=== PATIENT | female | born 1990 | race Caucasian/White ===

== ENCOUNTER 2018-12-07 18:36 | Emergency (ER) | payer BC ==
[2018-12-07] MEDS ORDERED: Ketorolac 30 MG/ML SDV IVPUSH ONE (19:15)
[2018-12-07] MEDS ORDERED: Ondansetron 4 MG/2 ML SDV IVPUSH ONE (19:15)
[2018-12-07] MEDS ORDERED: Sodium Chloride 0.9% 1,000 ML IV ONE (19:15)
--- NOTE | 2018-12-07 19:17 | EDM.PDOC ---
ED HPI GENERAL MEDICAL PROBLEM - General Chief Complaint: General Stated Complaint: SWEATING, HEADACHE, BODY PAINS Time Seen by Provider: 12/07/18 19:09 - History of Present Illness INITIAL COMMENTS - FREE TEXT/NARRATIVE: HISTORY AND PHYSICAL: History of present illness: Patient is a 28-year-old white female presents with a concern of headache nausea vomiting diarrhea generalized body aches over the last 24-48 hours she denies vaginal discharge or irregular bleeding or urinary tract infection signs or symptoms. There's been no reported fever and on arrival has no fever. Review of systems: As per history of present illness and below otherwise all systems reviewed and negative. Past medical history: As per history of present illness and as reviewed below otherwise noncontributory. Surgical history: As per history of present illness and as reviewed below otherwise noncontributory. Social history: No reported history of drug or alcohol abuse. Family history: As per history of present illness and as reviewed below otherwise noncontributory. Physical exam: HEENT: Atraumatic, normocephalic, pupils reactive, negative for conjunctival pallor or scleral icterus, mucous membranes moist, throat clear, neck supple, nontender, trachea midline. Lungs: Clear to auscultation, breath sounds equal bilaterally, chest nontender. Heart: S1S2, regular, negative for clicks, rubs, or JVD. Abdomen: Soft, nondistended, nontender. Negative for masses or hepatosplenomegaly. Negative for costovertebral tenderness. Pelvis: Stable nontender. Genitourinary: Deferred. Rectal: Deferred. Extremities: Atraumatic, negative for cords or calf pain. Neurovascular unremarkable. Neuro: Awake, alert, oriented. Cranial nerves II through XII unremarkable. Cerebellum unremarkable. Motor and sensory unremarkable throughout. Exam nonfocal. Diagnostics: CBC CMP UA hCG stool for C&S O&P C. difficile if obtainable CT brain chest x-ray Therapeutics: Saline 1 L bolus Toradol 30 mg IV Zofran 4 mg IV Impression: #1 medical screening exam #2 viral syndrome Definitive disposition and diagnosis as appropriate pending reevaluation and review of above. Headache Pain Score (Numeric/FACES): 8 - Related Data Allergies Allergy/AdvReac Type Severity Reaction Status Date / Time No Known Allergies Allergy Verified 12/07/18 18:56 Home Meds: Home Meds . [No Known Home Meds] 12/07/18 [History] Past Medical History HEENT History: Reports: Other (See Below) Other HEENT History: wears glasses/contacts Gastrointestinal History: Reports: Cholelithiasis HYPO SPLASHER History: Reports: Polycystic Ovaries, Other HYPO SPLASHER History: vaginal deliver 4 months ago Neurological History: Reports: Concussion Psychiatric History: Reports: Anxiety, Depression - Past Surgical History Head Surgeries/Procedures: Reports: None HEENT Surgical History: Reports: Adenoidectomy, Myringotomy w Tube(s), Oral Surgery, Tonsillectomy GI Surgical History: Reports: Cholecystectomy Social & Family History - Family History Family Medical History: Noncontributory Cardiac: Reports: Heart Valve Replacement, Hypertension - Tobacco Use Smoking Status *Q: Never Smoker Second Hand Smoke Exposure: No - Caffeine Use Caffeine Use: Reports: Coffee, Soda - Recreational Drug Use Recreational Drug Use: No ED ROS GENERAL - Review of Systems Review Of Systems: ROS reveals no pertinent complaints other than HPI. ED EXAM, GENERAL - Physical Exam Exam: See Below (See dictation) Course - Vital Signs Last Recorded V/S: Last Vital Signs Temp 37.4 C 12/07/18 18:52 Pulse 95 12/07/18 18:52 Resp 18 12/07/18 18:52 BP 135/80 12/07/18 18:52 Pulse Ox 100 12/07/18 18:52 - Orders/Labs/Meds Orders: Active Orders 24 hr Category Date Time Status CDIFF TOX A+B [OP] Stat Lab 12/07/18 19:17 Ordered CULTURE STOOL + CAMPY+SHIGATOX [RM] Stat Lab 12/07/18 19:15 Ordered Isolation [COMM] Stat Oth 12/07/18 19:18 Ordered Labs: Laboratory Tests 12/07/18 12/07/18 12/07/18 Range/Units 19:21 19:21 19:21 WBC 6.57 (4.0-11.0) K/uL RBC 4.66 (4.30-5.90) M/uL Hgb 13.9 (12.0-16.0) g/dL Hct 40.6 (36.0-46.0) % MCV 87.1 (80.0-98.0) fL MCH 29.8 (27.0-32.0) pg MCHC 34.2 (31.0-37.0) g/dL RDW Std Deviation 42.1 (28.0-62.0) fl RDW Coeff of Porsche 13 (11.0-15.0) % Plt Count 309 (150-400) K/uL MPV 10.30 (7.40-12.00) fL Neut % (Auto) 62.8 (48.0-80.0) % Lymph % (Auto) 24.2 (16.0-40.0) % [place] % (Auto) 12.0 (0.0-15.0) % Eos % (Auto) 0.8 (0.0-7.0) % Baso % (Auto) 0.2 (0.0-1.5) % Neut # (Auto) 4.1 (1.4-5.7) K/uL Lymph # (Auto) 1.6 (0.6-2.4) K/uL [place] # (Auto) 0.8 (0.0-0.8) K/uL Eos # (Auto) 0.1 (0.0-0.7) K/uL Baso # (Auto) 0.0 (0.0-0.1) K/uL Nucleated RBC % 0.0 /100WBC Nucleated RBCs # 0 K/uL Sodium 142 (136-145) mmol/L Potassium 3.5 (3.5-5.1) mmol/L Chloride 105 (98-107) mmol/L Carbon Dioxide 27.9 (21.0-32.0) mmol/L BUN 11 (7.0-18.0) mg/dL Creatinine 0.8 (0.6-1.0) mg/dL Est Cr Clr Drug Dosing 97.13 mL/min Estimated GFR (MDRD) > 60.0 ml/min Glucose 102 (74-106) mg/dL Calcium 9.2 (8.5-10.1) mg/dL Total Bilirubin 0.3 (0.2-1.0) mg/dL AST 17 (15-37) IU/L ALT 38 (14-63) IU/L Alkaline Phosphatase 79 (46-116) U/L Total Protein 7.9 (6.4-8.2) g/dL Albumin 4.0 (3.4-5.0) g/dL Globulin 3.9 (2.6-4.0) g/dL Albumin/Globulin Ratio 1.0 (0.9-1.6) Lipase 80 (73-393) U/L HCG, Qual NEGATIVE (NEG) Urine Color Urine Appearance Urine pH (5.0-8.0) Ur Specific [place] (1.001-1.035) Urine Protein (NEGATIVE) mg/dL Urine Glucose (UA) (NEGATIVE) mg/dL Urine Ketones (NEGATIVE) mg/dL Urine Occult Blood (NEGATIVE) Urine Nitrite (NEGATIVE) Urine Bilirubin (NEGATIVE) Urine Urobilinogen (<2.0) EU/dL Ur Leukocyte Esterase (NEGATIVE) 12/07/18 Range/Units 20:21 WBC (4.0-11.0) K/uL RBC (4.30-5.90) M/uL Hgb (12.0-16.0) g/dL Hct (36.0-46.0) % MCV (80.0-98.0) fL MCH (27.0-32.0) pg MCHC (31.0-37.0) g/dL RDW Std Deviation (28.0-62.0) fl RDW Coeff of Porsche (11.0-15.0) % Plt Count (150-400) K/uL MPV (7.40-12.00) fL Neut % (Auto) (48.0-80.0) % Lymph % (Auto) (16.0-40.0) % [place] % (Auto) (0.0-15.0) % Eos % (Auto) (0.0-7.0) % Baso % (Auto) (0.0-1.5) % Neut # (Auto) (1.4-5.7) K/uL Lymph # (Auto) (0.6-2.4) K/uL [place] # (Auto) (0.0-0.8) K/uL Eos # (Auto) (0.0-0.7) K/uL Baso # (Auto) (0.0-0.1) K/uL Nucleated RBC % /100WBC Nucleated RBCs # K/uL Sodium (136-145) mmol/L Potassium (3.5-5.1) mmol/L Chloride (98-107) mmol/L Carbon Dioxide (21.0-32.0) mmol/L BUN (7.0-18.0) mg/dL Creatinine (0.6-1.0) mg/dL Est Cr Clr Drug Dosing mL/min Estimated GFR (MDRD) ml/min Glucose (74-106) mg/dL Calcium (8.5-10.1) mg/dL Total Bilirubin (0.2-1.0) mg/dL AST (15-37) IU/L ALT (14-63) IU/L Alkaline Phosphatase (46-116) U/L Total Protein (6.4-8.2) g/dL Albumin (3.4-5.0) g/dL Globulin (2.6-4.0) g/dL Albumin/Globulin Ratio (0.9-1.6) Lipase (73-393) U/L HCG, Qual (NEG) Urine Color YELLOW Urine Appearance SLT CLOUDY Urine pH 7.0 (5.0-8.0) Ur Specific [place] 1.010 (1.001-1.035) Urine Protein NEGATIVE (NEGATIVE) mg/dL Urine Glucose (UA) NEGATIVE (NEGATIVE) mg/dL Urine Ketones NEGATIVE (NEGATIVE) mg/dL Urine Occult Blood NEGATIVE (NEGATIVE) Urine Nitrite NEGATIVE (NEGATIVE) Urine Bilirubin NEGATIVE (NEGATIVE) Urine Urobilinogen 0.2 (<2.0) EU/dL Ur Leukocyte Esterase NEGATIVE (NEGATIVE) Meds: Medications Discontinued Medications Generic Name Dose Route Start Last Admin Trade Name Freq PRN Reason Stop Dose Admin Sodium Chloride 1,000 mls @ 999 mls/hr 12/07/18 19:15 12/07/18 19:29 Normal Saline IV 12/07/18 20:15 999 mls/hr STAT ONE Administration Ketorolac Tromethamine 30 mg 12/07/18 19:15 12/07/18 19:28 Toradol IVPUSH 12/07/18 19:16 30 mg ONETIME ONE Administration Ondansetron HCl 4 mg 12/07/18 19:15 12/07/18 19:29 Zofran IVPUSH 12/07/18 19:16 4 mg ONETIME ONE Administration Departure - Departure Time of Disposition: 20:52 Disposition: Home, Self-Care 01 Condition: Good Clinical Impression: Encounter for medical screening examination, Viral syndrome - Discharge Information Referrals: PCP,None [Primary Care Provider] - Forms: ED Department Discharge Additional Instructions: The following information is given to patients seen in the emergency department who are being discharged to home. This information is to outline your options for follow-up care. We provide all patients seen in our emergency department with a follow-up referral. The need for follow-up, as well as the timing and circumstances, are variable depending upon the specifics of your emergency department visit. If you don't have a primary care physician on staff, we will provide you with a referral. We always advise you to contact your personal physician following an emergency department visit to inform them of the circumstance of the visit and for follow-up with them and/or the need for any referrals to a consulting specialist. The emergency department will also refer you to a specialist when appropriate. This referral assures that you have the opportunity for followup care with a specialist. All of these measure are taken in an effort to provide you with optimal care, which includes your followup. Under all circumstances we always encourage you to contact your private physician who remains a resource for coordinating your care. When calling for followup care, please make the office aware that this follow-up is from your recent emergency room visit. If for any reason you are refused follow-up, please contact the [facility] emergency department at and asked to speak to the emergency department charge nurse. Motrin/Tylenol as directed push fluids follow primary medical doctor as needed as discussed and return as needed as discussed - My Orders Last 24 Hours: My Active Orders 12/07/18 19:15 CULTURE STOOL + CAMPY+SHIGATOX [RM] Stat 12/07/18 19:17 CDIFF TOX A+B [OP] Stat 12/07/18 19:18 Isolation [COMM] Stat - Assessment/Plan Last 24 Hours: My Active Orders 12/07/18 19:15 CULTURE STOOL + CAMPY+SHIGATOX [RM] Stat 12/07/18 19:17 CDIFF TOX A+B [OP] Stat 12/07/18 19:18 Isolation [COMM] Stat
[2018-12-07 19:52] LABS: BLOOD UREA NITROGEN,BUN 11 mg/dL (7.0-18.0); CARBON DIOXIDE,CO2 27.9 mmol/L (21.0-32.0); CHLORIDE,CL 105 mmol/L (98-107); GLUCOSE RANDOM 102 mg/dL (74-106); LIPASE 80 U/L (73-393); POTASSIUM,K 3.5 mmol/L (3.5-5.1); SODIUM,NA 142 mmol/L (136-145)
--- NOTE | 2018-12-07 20:23 | CT ---
INDICATION: Headache TECHNIQUE: CT head without contrast. COMPARISON: None FINDINGS: CSF spaces: Within normal limits for age. Brain parenchyma: The howell-white differentiation is normal. No sign of mass, hemorrhage, or midline shift. Skull base and calvarium: The visualized paranasal sinuses and mastoid air cells demonstrate no acute or significant findings. The visualized orbits are grossly unremarkable. No skull fractures. IMPRESSION: Unremarkable noncontrast head CT. Please note that all CT scans at this facility use dose modulation, iterative reconstruction, and/or weight-based dosing when appropriate to reduce radiation dose to as low as reasonably achievable. Dictated by Lo Garcia MD @ Dec 07 2018 8:18PM Signed by Dr. Lo Garcia @ Dec 07 2018 8:22PM
--- NOTE | 2018-12-07 20:34 | CR ---
INDICATION: Headache/SOB TECHNIQUE: Chest 1 view. COMPARISON: None. FINDINGS: Cardiovascular and mediastinum: Heart size and vasculature are normal in caliber and appearance. Mediastinum is within normal limits. Lungs and pleural space: Lungs are clear. No sign of infiltrate or mass. No sign of pleural effusion. No pneumothorax. Bones and soft tissues: No significant findings. IMPRESSION: Unremarkable chest. Dictated by: Kushal Urias MD @ 12/07/2018 20:32:14 (Electronically Signed)
[2018-12-07 21:00] VITALS: BP 114/75; PULSE 72
== END 2018-12-07 21:00 | disposition home or self-care (01) ==
LOC: MW.ED 18:36
DX: B34.9 Viral infection, unspecified (principal)
CPT/HCPCS: 70450; 71045; 80053; 81003; 83690; 84703; 85025; 96361; 96374; 96375; 99285; J1885; J2405; J7040; 99283

== ENCOUNTER 2020-11-23 16:31 | Inpatient (IN) | payer BC ==
[2020-11-23] MEDS ORDERED: Tranexamic Acid 1,000 MG in Sodium Chloride 0.9% 100 ML IV PRN (16:33)
[2020-11-23] MEDS ORDERED: Nalbuphine 10 MG/1 ML Vial IVPUSH PRN (16:33)
[2020-11-23] MEDS ORDERED: Sodium Chloride 0.9% 10 ML SDV IV PRN (16:33)
[2020-11-23] MEDS ORDERED: Misoprostol 200 MCG Tab PO PRN (16:33)
[2020-11-23] MEDS ORDERED: Sodium Chloride 0.9% 2.5 ML Syringe FLUSH PRN (16:33)
[2020-11-23] MEDS ORDERED: Carboprost Tromethamine 250 MCG/1 ML Amp IM PRN (16:33)
[2020-11-23] MEDS ORDERED: Methylergonovine 0.2 MG/1 ML Amp IM PRN (16:33)
[2020-11-23] MEDS ORDERED: Butorphanol 1 MG/ML SDV IVPUSH PRN (16:33)
[2020-11-23] MEDS ORDERED: Water For Irrigation,Sterile 1,000 ML Container IRR PRN (16:33)
[2020-11-23] MEDS ORDERED: Sodium Chloride 0.9% 10 ML Syringe FLUSH PRN (16:33)
[2020-11-23] MEDS ORDERED: Lidocaine 1% 50 ML MDV INJECT PRN (16:33)
[2020-11-23] MEDS: Lactated Ringers 1,000 ML IV SCH ×2 (16:35→17:15)
[2020-11-23] MEDS ORDERED: Terbutaline 1 MG/ML SDV SUBCUT PRN (16:36)
[2020-11-23] MEDS ORDERED: Misoprostol 25 MCG (1/4 of 100 MCG) Tab VAG PRN ×2 (16:36)
[2020-11-23] MEDS ORDERED: Bupivacaine 0.25% 10 ML SDV ONE (16:40)
[2020-11-23] MEDS ORDERED: Ropivacaine HCl/PF 200 ML ONE (16:40)
[2020-11-23] MEDS ORDERED: Oxytocin/0.9 % Sodium Chloride 30 UNIT/500 ML BAG IV SCH ×2 (16:45)
[2020-11-23] MEDS ORDERED: Oxytocin/0.9 % Sodium Chloride 30 UNIT/500 ML BAG ONE (16:45)
[2020-11-23] MEDS ORDERED: Carboprost Tromethamine 250 MCG/1 ML Amp ONE (17:10)
[2020-11-23] MEDS ORDERED: Methylergonovine 0.2 MG/1 ML Amp ONE (17:11)
--- NOTE | 2020-11-23 17:25 | PCM.PREANE ---
Preanesthetic Assessment - Anesthesia/Transfusion/Family Hx Anesthesia History: Prior Anesthesia Reaction Family History of Anesthesia Reaction: No Transfusion History: No Prior Transfusion(s) - Review of Systems General: No Symptoms Pulmonary: No Symptoms Cardiovascular: No Symptoms Gastrointestinal: No Symptoms Neurological: No Symptoms Other: Reports: None - Physical Assessment NPO Status Date: 11/23/20 NPO Status Time: 12:00 ASA Class: 2 Mental Status: Alert & Oriented x3 Airway Class: Mallampati = 3 Dentition: Reports: Normal Dentition ROM/Head Extension: Full Lungs: Clear to Auscultation, Normal Respiratory Effort Cardiovascular: Regular Rate, Regular Rhythm, Murmurs - Lab Values: Laboratory Last Values WBC 9.10 K/uL (4.0-11.0) 11/23/20 16:15 RBC 3.88 M/uL (4.30-5.90) L 11/23/20 16:15 Hgb 11.0 g/dL (12.0-16.0) L 11/23/20 16:15 Hct 32.5 % (36.0-46.0) L 11/23/20 16:15 MCV 83.8 fL (80.0-98.0) 11/23/20 16:15 MCH 28.4 pg (27.0-32.0) 11/23/20 16:15 MCHC 33.8 g/dL (31.0-37.0) 11/23/20 16:15 RDW Std Deviation 42.9 fl (28.0-62.0) 11/23/20 16:15 RDW Coeff of Porsche 14 % (11.0-15.0) 11/23/20 16:15 Plt Count 198 K/uL (150-400) 11/23/20 16:15 MPV 14.10 fL (7.40-12.00) H 11/23/20 16:15 Nucleated RBC % 0.0 /100WBC 11/23/20 16:15 Nucleated RBCs # 0 K/uL 11/23/20 16:15 - Allergies Allergies/Adverse Reactions: Allergies Allergy/AdvReac Type Severity Reaction Status Date / Time No Known Allergies Allergy Verified 12/07/18 18:56 PreAnesthesia Questionnaire HEENT History: Reports: Other (See Below) Other HEENT History: wears glasses/contacts Gastrointestinal History: Reports: Cholelithiasis 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 [No Known Home Meds] 12/07/18 [History] - CURRENT (IN HOUSE) MEDS Current Meds: Current Medications Butorphanol Tartrate (Butorphanol 1 Mg/Ml Sdv) 1 mg IVPUSH Q1H PRN PRN Reason: Pain (severe 7-10) Carboprost Tromethamine (Carboprost Tromethamine 250 Mcg/1 Ml Amp) 250 mcg IM ASDIRECTED PRN PRN Reason: Post Hemorrhage Oxytocin/Sodium Chloride (Oxytocin 30 Unit/500 Ml-Ns) 30 unit in 500 mls @ 500 mls/hr IV TITRATE [place] Tranexamic Acid 1,000 mg/ (Sodium Chloride) 110 mls @ 660 mls/hr IV ONETIME PRN PRN Reason: Bleeding Lactated Ringer's (Ringers, Lactated) 1,000 mls @ 150 mls/hr IV ASDIRECTED [place] Oxytocin/Sodium Chloride (Oxytocin 30 Unit/500 Ml-Ns) 30 unit in 500 mls @ 2 mls/hr IV TITRATE [place]; Protocol Lidocaine HCl (Lidocaine 1% 50 Ml Mdv) 50 ml INJECT ONETIME PRN PRN Reason: Laceration repair Methylergonovine Maleate (Methylergonovine 0.2 Mg/1 Ml Amp) 0.2 mg IM ASDIRECTED PRN PRN Reason: Post Hemorrhage Misoprostol (Misoprostol 200 Mcg Tab) 200 mcg PO ONETIME PRN PRN Reason: Post Hemorrhage Misoprostol (Misoprostol 25 Mcg (1/4 Of 100 Mcg) Tab) 25 mcg VAG ONETIME PRN PRN Reason: Cervical Ripening Misoprostol (Misoprostol 25 Mcg (1/4 Of 100 Mcg) Tab) 25 mcg VAG Q4H PRN PRN Reason: Cervical Ripening Nalbuphine HCl (Nalbuphine 10 Mg/1 Ml Vial) 10 mg IVPUSH Q1H PRN PRN Reason: Pain (severe 7-10) Sodium Chloride (Sodium Chloride 0.9% 10 Ml Syringe) 10 ml FLUSH ASDIRECTED PRN PRN Reason: Keep Vein Open Sodium Chloride (Sodium Chloride 0.9% 2.5 Ml Syringe) 2.5 ml FLUSH ASDIRECTED PRN PRN Reason: Keep Vein Open Sodium Chloride (Sodium Chloride 0.9% 10 Ml Sdv) 10 ml IV ASDIRECTED PRN PRN Reason: IV Use Sterile Water (Water For Irrigation,Sterile 1,000 Ml Container) 1,000 ml IRR ASDIRECTED PRN PRN Reason: delivery Terbutaline Sulfate (Terbutaline 1 Mg/Ml Sdv) 0.25 mg SUBCUT ASDIRECTED PRN PRN Reason: Tacysystole Discontinued Medications Bupivacaine HCl (Bupivacaine 0.25% 10 Ml Sdv) Confirm Administered Dose 10 ml .ROUTE .STK-MED ONE Stop: 11/23/20 16:41 Ropivacaine (Naropin 0.2%) Confirm Administered Dose 200 mls @ as directed .ROUTE .STK-MED ONE Stop: 11/23/20 16:41 Oxytocin/Sodium Chloride (Oxytocin 30 Unit/500 Ml-Ns) Confirm Administered Dose 30 unit in 500 mls @ as directed .ROUTE .STK-MED ONE Stop: 11/23/20 16:46
[2020-11-23] MEDS ORDERED: Ondansetron 4 MG/2 ML SDV IVPUSH PRN (17:30)
[2020-11-23] MEDS ORDERED: Witch Hazel Medicated Pads 40/Jar TOP PRN (18:22)
[2020-11-23] MEDS ORDERED: Ibuprofen 400 MG Tab PO PRN (18:22)
[2020-11-23] MEDS ORDERED: oxyCODONE 5 MG Tab PO PRN (18:22)
[2020-11-23] MEDS ORDERED: Lanolin 100% Cream 7 GM Tube TOP PRN (18:22)
[2020-11-23] MEDS ORDERED: Benzocaine/Menthol 20%-0.5% Spray 78 GM Cannister TOP PRN (18:22)
[2020-11-23] MEDS ORDERED: Acetaminophen 500 MG Tab PO PRN ×2 (18:22)
[2020-11-23] MEDS ORDERED: Ibuprofen 800 MG Tab PO PRN (18:22)
[2020-11-23] MEDS ORDERED: Bisacodyl 10 MG Supp RECTAL PRN (18:22)
[2020-11-23] MEDS ORDERED: Docusate Sodium 100 MG Cap PO PRN (18:22)
--- NOTE | 2020-11-24 03:20 | OR ---
SURGEON: Aly Whitaker MD DATE OF PROCEDURE: 11/23/2020 INDICATION FOR PROCEDURE: A 30-year-old G2, P1-0-0-1 at 37 weeks and 5 days, presenting with labor and rupture of membranes. The patient had rupture of membranes around 2:45 this afternoon. She then began having regular contractions. After arriving to Labor and Delivery, she was confirmed to be ruptured with positive AmniSure and her cervix was 5 cm dilated. She was GBS negative. The patient's was complicated by polycystic ovarian syndrome and infertility. She had ovulation induction with letrozole, which helped her conceive for this . Her was otherwise uncomplicated. She desired an epidural which she received with good pain control. Category 1 tracing. She quickly progressed to fully dilated with urge to push. PREOPERATIVE DIAGNOSIS: Vee intrauterine at 37 weeks and 5 days. POSTOPERATIVE DIAGNOSIS: Vee intrauterine at 37 weeks and 5 days. PROCEDURE PERFORMED: Normal spontaneous vaginal delivery, repair of first-degree lacerations. ANESTHESIA: Epidural. ANESTHESIOLOGIST: Delano Zimmerman MD. FINDINGS: Viable female . score of 8 and 9. weight of 7lb 10oz. The cord was wrapped around both the baby's feet. ESTIMATED BLOOD LOSS: 200 mL. DESCRIPTION OF PROCEDURE: The patient pushed with contractions for approximately 45 minutes with good descent. The head delivered in occiput anterior position over intact perineum, restituted ROT. Anterior shoulder delivered easily followed by posterior shoulder and remaining body. The cord was wrapped around the baby's feet that was reduced after delivery. The baby was placed on maternal chest and evaluated by awaiting nursery staff. The baby was pink, crying vigorously, moving all extremities. The patient desired delayed cord clamping and therefore the baby remain attached for about 10 minutes. The vagina and perineum was examined and first-degree laceration was noted. It was repaired with 3-0 Vicryl in usual fashion. Hemostasis was confirmed. The umbilical cord was clamped and cut. The cord gases were obtained. The placenta was removed with gentle traction on the umbilical cord and fundal massage. It was examined to be intact with 3-vessel cord. The patient had light bleeding and the fundus was firm at the umbilicus. She tolerated the procedure well and was given care instructions. NGA / STEVE /[id number] ADAN
--- NOTE | 2020-11-24 12:17 | PCM.PNPP ---
- General Info Date of Service: 11/24/20 Subjective Update: 30yo P2 s/p PPD 1 ambulating , voiding and tolerating regular diet Normal lochia Functional Status: Reports: Pain Controlled, Tolerating Diet, Ambulating, Urinating - Review of Systems General: Reports: No Symptoms HEENT: Reports: No Symptoms Pulmonary: Reports: No Symptoms Cardiovascular: Reports: No Symptoms Gastrointestinal: Reports: No Symptoms Genitourinary: Reports: No Symptoms Musculoskeletal: Reports: No Symptoms Skin: Reports: No Symptoms Neurological: Reports: No Symptoms Psychiatric: Reports: No Symptoms - General Info Date of Service: 11/24/20 - Patient Data Vital Signs - Most Recent: Last Vital Signs Temp 36.2 C 11/24/20 07:00 Pulse 56 L 11/24/20 07:00 Resp 18 11/24/20 07:00 BP 123/75 11/24/20 07:00 Pulse Ox 99 11/24/20 07:00 Weight - Most Recent: 91.172 kg Lab Results - Last 24 Hours: Laboratory Results - last 24 hr 11/23/20 11/23/20 11/23/20 Range/Units 16:15 16:15 16:15 WBC 9.10 (4.0-11.0) K/uL RBC 3.88 L (4.30-5.90) M/uL Hgb 11.0 L (12.0-16.0) g/dL Hct 32.5 L (36.0-46.0) % MCV 83.8 (80.0-98.0) fL MCH 28.4 (27.0-32.0) pg MCHC 33.8 (31.0-37.0) g/dL RDW Std Deviation 42.9 (28.0-62.0) fl RDW Coeff of Porsche 14 (11.0-15.0) % Plt Count 198 (150-400) K/uL MPV 14.10 H (7.40-12.00) fL Nucleated RBC % 0.0 /100WBC Nucleated RBCs # 0 K/uL Cord ABG pH (7.18-7.38) Cord ABG Base Excess (-10--2) Cord VBG pH (7.25-7.45) Cord VBG Base Excess (-10--2) SARS-CoV-2 RNA (MANINDER) NEGATIVE (NEGATIVE) Blood Type A POSITIVE Antibody Screen NEGATIVE 11/23/20 11/24/20 Range/Units 17:54 05:02 WBC (4.0-11.0) K/uL RBC (4.30-5.90) M/uL Hgb 10.0 L (12.0-16.0) g/dL Hct 30.0 L (36.0-46.0) % MCV (80.0-98.0) fL MCH (27.0-32.0) pg MCHC (31.0-37.0) g/dL RDW Std Deviation (28.0-62.0) fl RDW Coeff of Porsche (11.0-15.0) % Plt Count (150-400) K/uL MPV (7.40-12.00) fL Nucleated RBC % /100WBC Nucleated RBCs # K/uL Cord ABG pH 7.291 (7.18-7.38) Cord ABG Base Excess -6 (-10--2) Cord VBG pH 7.233 L (7.25-7.45) Cord VBG Base Excess -9 (-10--2) SARS-CoV-2 RNA (MANINDER) (NEGATIVE) Blood Type Antibody Screen Med Orders - Current: Current Medications Acetaminophen (Acetaminophen 500 Mg Tab) 500 mg PO Q4H PRN PRN Reason: Pain (mild 1-3) Acetaminophen (Acetaminophen 500 Mg Tab) 1,000 mg PO Q4H PRN PRN Reason: Pain (mild 1-3) Last Admin: 11/24/20 00:42 Dose: 1,000 mg Documented by: Benzocaine/Menthol (Benzocaine/Menthol 20%-0.5% [place] 78 Gm Cannister) 0 gm TOP ASDIRECTED PRN PRN Reason: Perineal Comfort Measure Last Admin: 11/23/20 21:21 Dose: 1 can Documented by: Bisacodyl (Bisacodyl 10 Mg Supp) 10 mg RECTAL ONETIME PRN PRN Reason: Constipation Carboprost Tromethamine (Carboprost Tromethamine 250 Mcg/1 Ml Amp) 250 mcg IM ASDIRECTED PRN PRN Reason: Post Hemorrhage Docusate Sodium (Docusate Sodium 100 Mg Cap) 100 mg PO Q12H PRN PRN Reason: Constipation Emollient Ointment (Lanolin 100% Cream 7 Gm Tube) 0 gm TOP ASDIRECTED PRN PRN Reason: Sore Nipples Tranexamic Acid 1,000 mg/ (Sodium Chloride) 110 mls @ 660 mls/hr IV ONETIME PRN PRN Reason: Bleeding Oxytocin/Sodium Chloride (Oxytocin 30 Unit/500 Ml-Ns) 30 unit in 500 mls @ 2 mls/hr IV TITRATE [place]; Protocol Ibuprofen (Ibuprofen 400 Mg Tab) 400 mg PO Q4H PRN PRN Reason: Pain (mild 1-3) Ibuprofen (Ibuprofen 800 Mg Tab) 800 mg PO Q6H PRN PRN Reason: Pain (mild 1-3) Last Admin: 11/24/20 09:33 Dose: 800 mg Documented by: Methylergonovine Maleate (Methylergonovine 0.2 Mg/1 Ml Amp) 0.2 mg IM ASDIRECTED PRN PRN Reason: Post Hemorrhage Misoprostol (Misoprostol 200 Mcg Tab) 200 mcg PO ONETIME PRN PRN Reason: Post Hemorrhage Misoprostol (Misoprostol 25 Mcg (1/4 Of 100 Mcg) Tab) 25 mcg VAG ONETIME PRN PRN Reason: Cervical Ripening Misoprostol (Misoprostol 25 Mcg (1/4 Of 100 Mcg) Tab) 25 mcg VAG Q4H PRN PRN Reason: Cervical Ripening Ondansetron HCl (Ondansetron 4 Mg/2 Ml Sdv) 4 mg IVPUSH Q4H PRN PRN Reason: Nausea/Vomiting Last Admin: 11/23/20 17:30 Dose: 4 mg Documented by: Oxycodone HCl (Oxycodone 5 Mg Tab) 5 mg PO Q2H PRN PRN Reason: Pain (severe 7-10) Terbutaline Sulfate (Terbutaline 1 Mg/Ml Sdv) 0.25 mg SUBCUT ASDIRECTED PRN PRN Reason: Tacysystole Witch Alysa (Witch Alysa Medicated Pads 40/Jar) 1 pad TOP ASDIRECTED PRN PRN Reason: comfort care Last Admin: 11/23/20 21:21 Dose: 1 tub Documented by: Discontinued Medications Bupivacaine HCl (Bupivacaine 0.25% 10 Ml Sdv) Confirm Administered Dose 10 ml .ROUTE .STK-MED ONE Stop: 11/23/20 16:41 Last Admin: 11/23/20 22:42 Dose: Not Given Documented by: Butorphanol Tartrate (Butorphanol 1 Mg/Ml Sdv) 1 mg IVPUSH Q1H PRN PRN Reason: Pain (severe 7-10) Carboprost Tromethamine (Carboprost Tromethamine 250 Mcg/1 Ml Amp) Confirm Administered Dose 250 mcg .ROUTE .STK-MED ONE Stop: 11/23/20 17:11 Last Admin: 11/23/20 22:42 Dose: Not Given Documented by: Oxytocin/Sodium Chloride (Oxytocin 30 Unit/500 Ml-Ns) 30 unit in 500 mls @ 500 mls/hr IV TITRATE [facility] Last Admin: 11/23/20 17:56 Dose: 500 mls/hr Documented by: Lactated Ringer's (Ringers, Lactated) 1,000 mls @ 150 mls/hr IV ASDIRECTED [facility] Last Admin: 11/23/20 17:15 Dose: 150 mls/hr Documented by: Ropivacaine (Naropin 0.2%) Confirm Administered Dose 200 mls @ as directed .ROUTE .STCrepeGuys-MED ONE Stop: 11/23/20 16:41 Last Admin: 11/23/20 22:42 Dose: Not Given Documented by: Oxytocin/Sodium Chloride (Oxytocin 30 Unit/500 Ml-Ns) Confirm Administered Dose 30 unit in 500 mls @ as directed .ROUTE .[employer]-MED ONE Stop: 11/23/20 16:46 Last Admin: 11/23/20 22:42 Dose: Not Given Documented by: Lidocaine HCl (Lidocaine 1% 50 Ml Mdv) 50 ml INJECT ONETIME PRN PRN Reason: Laceration repair Methylergonovine Maleate (Methylergonovine 0.2 Mg/1 Ml Amp) Confirm Administered Dose 0.2 mg .ROUTE .STK-MED ONE Stop: 11/23/20 17:12 Last Admin: 11/23/20 22:42 Dose: Not Given Documented by: Nalbuphine HCl (Nalbuphine 10 Mg/1 Ml Vial) 10 mg IVPUSH Q1H PRN PRN Reason: Pain (severe 7-10) Sodium Chloride (Sodium Chloride 0.9% 10 Ml Syringe) 10 ml FLUSH ASDIRECTED PRN PRN Reason: Keep Vein Open Sodium Chloride (Sodium Chloride 0.9% 2.5 Ml Syringe) 2.5 ml FLUSH ASDIRECTED PRN PRN Reason: Keep Vein Open Sodium Chloride (Sodium Chloride 0.9% 10 Ml Sdv) 10 ml IV ASDIRECTED PRN PRN Reason: IV Use Sterile Water (Water For Irrigation,Sterile 1,000 Ml Container) 1,000 ml IRR ASDIRECTED PRN PRN Reason: delivery - Interaction Support Person: - Recovery Exam Fundal Tone: Firm Fundal Level: 1 Fingerbreadths Below Umbilicus Fundal Placement: Midline Lochia Amount: Scant Lochia Color: Rubra/Red Perineum Description: Other (see below) Other Perinuem Description: 1st degree laceration Episiotomy/Laceration: Approximated Urinary Elimination: Other (see below) Other Urinary Elimination, : due to void - Exam General: Alert HEENT: Pupils Equal Neck: Supple Lungs: Clear to Auscultation Cardiovascular: Regular Rate, Regular Rhythm GI/Abdominal Exam: Normal Bowel Sounds Extremities: Normal Inspection Neurological: No New Focal Deficit Psy/Mental Status: Alert - Problem List & Annotations (1) Vaginal delivery SNOMED Code(s): 506180002 Code(s): O80 - ENCOUNTER FOR FULL-TERM UNCOMPLICATED DELIVERY Status: Acute Current Visit: No - Problem List Review Problem List Initiated/Reviewed/Updated: Yes - Assessment Assessment:: 30yo P2 s/p PPD 1 , stable Normal lochia Rubella immune - Plan Plan:: Discharge instructions given Pain control Continue vitamins
[2020-11-24 19:17] VITALS: BP 117/78; PULSE 61
== END 2020-11-24 20:57 | disposition home or self-care (01) | DRG 560 ==
LOC: MW.OB 16:31 → MW.OBCHECK 16:31 → MW.OB 18:23 → MW.OBCHECK 18:23 → MW.OB 21:56
PROVIDERS: ADMIT Obstetrics & Gynecology; ATTEND Obstetrics & Gynecology
PROC: 10E0XZZ Delivery of Products of Conception, External Approach (ICD-10-PCS; principal; 2020-11-23)
PROC: 0HQ9XZZ Repair Perineum Skin, External Approach (ICD-10-PCS; 2020-11-23)
PROC: 3E0R3BZ Introduction of Anesthetic Agent into Spinal Canal, Percutaneous Approach (ICD-10-PCS; 2020-11-23)
DX: O99.284 Endocrine, nutritional and metabolic diseases complicating childbirth (principal); E28.2 Polycystic ovarian syndrome; Z3A.37 37 weeks gestation of pregnancy; Z37.0 Single live birth; O70.0 First degree perineal laceration during delivery; Z20.822 Contact with and (suspected) exposure to COVID-19; Z90.49 Acquired absence of other specified parts of digestive tract
CPT/HCPCS: 36415; 59025; 59409; 82803; 85014; 85018; 85027; 86592; 86850; 86900; 86901; A9270-GY; J2405; J2590; J2795; J3490; J7120; U0002

== ENCOUNTER 2021-05-26 20:33 | Emergency (ER) | payer BC ==
[2021-05-26] MEDS ORDERED: Sodium Chloride 0.9% 1,000 ML IV ONE (22:32)
[2021-05-26] MEDS ORDERED: Ondansetron 4 MG/2 ML SDV IVPUSH ONE (22:32)
[2021-05-26] MEDS ORDERED: Loperamide 2 MG Cap PO STA (22:33)
[2021-05-26 23:10] LABS: BLOOD UREA NITROGEN,BUN 18 mg/dL (7.0-18.0); CARBON DIOXIDE,CO2 27.3 mmol/L (21.0-32.0); CHLORIDE,CL 99 mmol/L (98-107); GLUCOSE RANDOM 133 mg/dL (74-106); LIPASE 50 U/L (73-393); POTASSIUM,K 3.9 mmol/L (3.5-5.1); SODIUM,NA 136 mmol/L (136-145)
[2021-05-27 00:32] VITALS: BP 100/55; PULSE 82
== END 2021-05-27 00:32 | disposition home or self-care (01) ==
LOC: MW.ED 20:33
DX: K52.9 Noninfective gastroenteritis and colitis, unspecified (principal); Z20.822 Contact with and (suspected) exposure to COVID-19
CPT/HCPCS: 36415; 80053; 81001; 81025; 83690; 85025; 87086; 87635; 87804; 96374; 99284; A9270; J2405; J7030; U0002

== ENCOUNTER 2022-08-16 19:52 | Emergency (ER) | payer BC ==
[2022-08-16] MEDS ORDERED: Ondansetron 4 MG/2 ML SDV IVPUSH ONE (21:48)
[2022-08-16] MEDS ORDERED: Sodium Chloride 0.9% 1,000 ML IV ONE (21:48)
[2022-08-16 22:35] LABS: CARBON DIOXIDE,CO2 21.6 mmol/L (21.0-32.0); POTASSIUM,K 3.3 mmol/L (3.5-5.1)
[2022-08-17] MEDS ORDERED: Iopamidol 755 MG/ML 500 ML Multipack Bottle IVPUSH STA (00:03)
[2022-08-17 01:36] VITALS: BP 105/63; PULSE 75
== END 2022-08-17 01:36 | disposition home or self-care (01) ==
LOC: MW.ED 19:52
DX: R19.7 Diarrhea, unspecified (principal); Z90.49 Acquired absence of other specified parts of digestive tract
CPT/HCPCS: 36415; 74177; 74177-26; 80053; 81001; 81025; 83690; 83735; 85025; 96361; 96374; 99284; 99284-25; J2405; J7030; Q9967

== ENCOUNTER 2022-09-28 08:37 | Emergency (ER) | payer BC ==
[2022-09-28] MEDS ORDERED: Metoclopramide 10 MG/2 ML SDV IVPUSH ONE (09:20)
[2022-09-28] MEDS ORDERED: Sodium Chloride 0.9% 1,000 ML IV ONE (09:20)
[2022-09-28] MEDS ORDERED: Ketorolac 30 MG/ML SDV IVPUSH ONE (09:20)
[2022-09-28 09:45] LABS: HEMATOCRIT 41.1 % (36.0-46.0); HEMOGLOBIN 14.1 g/dL (12.0-16.0); MEAN CORPUSCULAR HEMOGLOBIN 28.7 pg (27.0-32.0); MEAN CORPUSCULAR HGB CONC 34.3 g/dL (31.0-37.0); MEAN CORPUSCULAR VOLUME 83.5 fL (80.0-98.0); NRBC ABSOLUTE 0 K/uL; PLATELET COUNT,PLT 200 K/uL (150-400); RED BLOOD CELL COUNT 4.92 M/uL (4.30-5.90); WHITE BLOOD CELL COUNT,WBC 6.21 K/uL (4.0-11.0)
[2022-09-28 10:23] LABS: LYMPHOCYTES ABSOLUTE MAN 2.5 (0.6-2.4); LYMPHOCYTES PERCENT MAN 41 % (16.0-40.0); SEG NEUTROPHILS ABSOLUTE MAN 3.2 (1.4-5.7); SEG NEUTROPHILS PERCENT MAN 51 % (48.0-80.0)
[2022-09-28 10:24] LABS: BASOPHILS ABSOLUTE MAN 0.1 (0.0-0.1); BASOPHILS PERCENT MAN 1 % (0.0-1.5); EOSINOPHILS ABSOLUTE MAN 0.1 (0.0-0.7); EOSINOPHILS PERCENT MAN 1 % (0.0-7.0); MONOCYTES ABSOLUTE MAN 0.4 (0.0-0.8); MONOCYTES PERCENT MAN 6 % (0.0-15.0); REACTIVE LYMPHOCYTES MANY
[2022-09-28 10:30] LABS: CALCIUM 8.6 mg/dL (8.5-10.1); CARBON DIOXIDE,CO2 26.2 mmol/L (21.0-32.0); CREATININE 0.7 mg/dL (0.6-1.0); EST CRCL DRUG DOSING (CG) 108.01 mL/min; POTASSIUM,K 3.9 mmol/L (3.5-5.1); TSH ULTRASENSITIVE 1.23 uIU/mL (0.36-3.74)
[2022-09-28 11:45] VITALS: BP 104/64; PULSE 80
== END 2022-09-28 11:42 | disposition home or self-care (01) ==
LOC: MW.ED 08:37
DX: G43.909 Migraine, unspecified, not intractable, without status migrainosus (principal)
CPT/HCPCS: 36415; 70450; 80048; 84443; 85025; 96361; 96374; 96375; 99284; J1885; J2765; J7030